=== PATIENT | male | born 1965 | race Asian ===

== ENCOUNTER 2018-05-14 20:28 | Emergency (ER) | payer SELFPAY ==
[2018-05-14] MEDS ORDERED: NS 0.9% 1000 ML* 1,000 ML IV ONE (21:05)
[2018-05-14] MEDS ORDERED: carBAMazepine TAB(*) 200 MG PO ONE (21:07)
[2018-05-14 21:22] LABS: ABS Basophils 0 10^3/ul (0-0.2); ABS Eosinophils 0.2 10^3/ul (0-0.6); ABS Lymphocytes 1.2 10^3/ul (1.0-4.8); ABS Monocytes 0.5 10^3/ul (0-0.8); ABS Neutrophils 6.3 10^3/ul (1.5-7.7); ABS Nucleated RBC 0 10^3/ul; Eosinophil % 2.1 % (0-6); Hematocrit 38 % (42-52); Hemoglobin 13.1 g/dl (14.0-18.0); Lymphocyte % 14.6 % (25-47); Mean Corpuscular HGB Conc 35 g/dl (31-36); Mean Corpuscular Hemoglobin 31 pg (27-31); Mean Corpuscular Volume 88 fL (80-94); Mean Platelet Volume 8.6 um3 (7.4-10.4); Nucleated Red Blood Cells % 0; Platelet Count 165 10^3/ul (150-450); Red Blood Count 4.29 10^6/ul (4.00-5.40); Red Cell Distribution Width 14 % (10.5-15); White Blood Count 8.2 10^3/ul (3.5-10.8)
[2018-05-14 21:28] LABS: INR 0.94 (0.77-1.02)
--- NOTE | 2018-05-14 21:30 | RAD ---
Indication: Possible seizure activity. Comparison: No prior exams available on the [facility] [facility] for comparison. Technique: Noncontrast CT vertex of skull through foramen magnum. Report: The sulci, ventricles, and basal cisterns are normal for age. Clark matter white matter differentiation is preserved without evidence for edema. No intra or extra axial hemorrhage, mass, or fluid collection detected. Unremarkable visualized orbital contents. No suspicious lesions at the calvarium or skull base. Suggestion of degenerative arthropathy at the RIGHT greater than LEFT temporomandibular joints. Unremarkable scalp. Partially visualized RIGHT maxillary sinus is remarkable for mucosal thickening. Clear mastoid air spaces. IMPRESSION: Negative unenhanced CT of the brain.
[2018-05-14 21:45] LABS: EGFR Non-African American 88.6 (>60)
--- NOTE | 2018-05-14 22:09 | ED ---
Angie Clark Rebecca, scribed for Melani Paez MD on 05/14/18 at 2108 . Neurological HPI - HPI Summary HPI Summary: Pt is a 52 y/o M BIBA who presents to ED s/p suspected seizure. Today, at approximately [address], he stopped walking and kept standing there per coworker who witnessed episode. He was unable to move for about 5 minutes and while leaning against a car, he slid down and experienced full body convulsions. Episode lasted a bit less than 2 minutes and resolved spontaneously, per witness. Notes frothing at the mouth and bitten tongue during the episode. Denies incontinence. After the episode, he was initially disoriented though at this time, he feels well. PMHx seizures in 2013 had 2 seizures in one night, after which he had a full workup including EEG, sleep- deprived EEG, brain CT. Results confirmed that he had a seizure and most recently had been taking Tegretol (150 mg 1x a day) which was discontinued about 8 months ago as he had not had any seizure activity since initial episode , per pt. Is on Mysoline for essential tremors which he has had his entire life. Follows up with a neurologist in [place]. - History of Current Complaint Chief Complaint: EDSeizure Stated Complaint: SEIZURE Time Seen by Provider: 05/14/18 20:47 Hx Obtained From: Patient, Family/Film Cutter - Coworker Onset/Duration: Sudden Onset, Resolved Current Severity: None Pain Intensity: 0 Pain Scale Used: 0-10 Numeric Episode Lasting: Seconds/Minutes - < 2 minutes Number of Episodes: 1 Aggravating: Nothing Alleviating: Spontanious Resolution Associated Signs and Symptoms: Positive: Confusion - Initially - resolved. Negative: Incontinent Bladder/Bowel Related Hx: Seizure - In 2013 - Allergy/Home Medications Allergies/Adverse Reactions: Allergies Allergy/AdvReac Type Severity Reaction Status Date / Time diclofenac Allergy Eyes Verified 05/14/18 21:09 Itchy/Swollen/Red/Watery ibuprofen Allergy Eyes Verified 05/14/18 21:09 Itchy/Swollen/Red/Watery Home Medications: Home Medications Mysoline TAB(*) 0.5 tab PO DAILY 05/14/18 [History Confirmed 05/14/18] PMH/Surg Hx/FS Hx/Imm Hx EENT History: Denies: Hx Deafness Neurological History: Reports: Hx Seizures, Other Neuro Impairments/Disorders - Hx Essential tremor Infectious Disease History: No Infectious Disease History: Reports: Traveled Outside the [place] in Last 30 Days - lives in [place] - Family History Known Family History: Positive: Seizure Disorder - Social History Occupation: Employed Full-time Alcohol Use: Occasionally Substance Use Type: Reports: None Smoking Status (MU): Never Smoked Tobacco Review of Systems Negative: Fever Positive: Other - Tongue bite, frothing at mouth Negative: incontinence Neurological: Other - S/p seizure, disoriented (resolved) All Other Systems Reviewed And Are Negative: Yes Physical Exam - Summary Physical Exam Summary: VITAL SIGNS: Reviewed. GENERAL: Patient is a well-developed and nourished male who is lying comfortable in the stretcher. Patient is not in any acute respiratory distress. HEAD AND FACE: No signs of trauma. No ecchymosis, hematomas or skull depressions. No sinus tenderness. EYES: PERRLA, EOMI x 2, No injected conjunctiva, no nystagmus. EARS: Hearing grossly intact. Ear canals and tympanic membranes are within normal limits. MOUTH: Tongue bite on the right side. NECK: Supple, trachea is midline, no adenopathy, no JVD, no carotid bruit, no c- spine tenderness, neck with full ROM. CHEST: Symmetric, no tenderness at palpation LUNGS: Clear to auscultation bilaterally. No wheezing or crackles. CVS: Regular rate and rhythm, S1 and S2 present, no murmurs or gallops appreciated. ABDOMEN: Soft, non-tender. No signs of distention. No rebound no guarding, and no masses palpated. Bowel sounds are normal. EXTREMITIES: FROM in all major joints, no edema, no cyanosis or clubbing. NEURO: Alert and oriented x 3. No acute neurological deficits. Speech is normal and follows commands. SKIN: Dry and warm Triage Information Reviewed: Yes Vital Signs On Initial Exam: Initial Vitals Temp Pulse Resp BP Pulse Ox 98.7 F 86 18 119/78 98 05/14/18 20:52 05/14/18 20:52 05/14/18 20:52 05/14/18 20:52 05/14/18 20:52 Vital Signs Reviewed: Yes - Parris Coma Scale Best Eye Response: 4 - Spontaneous Best Motor Response: 6 - Obeys Commands Best Verbal Response: 5 - Oriented Coma Scale Total: 15 Diagnostics - Vital Signs Vital Signs Temp Pulse Resp BP Pulse Ox 05/14/18 20:52 98.7 F 86 18 119/78 98 - Laboratory Result Diagrams: 05/14/18 21:11 05/14/18 21:12 Lab Statement: Any lab studies that have been ordered have been reviewed, and results considered in the medical decision making process. - CT Brain CT CT Interpretation: No Acute Changes - Negative unenhanced CT of the brain. ED physician reviewed this radiology report. CT Interpretation Completed By: Radiologist Re-Evaluation - Re-Evaluation First Eval Re-Evaluation Time: 21:55 Comment: Discussed results and D/C plan with the pt. Course/Dx - Course Assessment/Plan: Pt is a 52 y/o M BIBA who presents to ED s/p suspected seizure at approximately [address], lasting a bit less than 2 minutes and resolved spontaneously, per witness. Notes frothing at the mouth and bitten tongue during the episode. Denies incontinence. After the episode, he was initially disoriented though at this time, he feels well. PMHx seizures in 2013 had 2 seizures in one night, after which he had a full workup including EEG, sleep-deprived EEG, brain CT, most recently had been taking Tegretol (150 mg 1x a day) which was discontinued about 8 months ago as he had not had any seizure activity since initial episode, per pt. Is on Mysoline for essential tremors which he has had his entire life. Follows up with a neurologist in [facility]. Brain CT reveals no acute findings. Blood work was done. In the ED course, pt received Tegretol and fluids. Pt will be D/C to home with Dx of seizure with a follow up with neurology. Allergies noted. - Diagnoses Provider Diagnoses: Seizure Discharge - Sign-Out/Discharge Documenting (check all that apply): Discharge/Admit/Transfer - Discharge - Discharge Plan Condition: Stable Disposition: HOME Prescriptions: Carbamazepine [Tegretol] 200 mg PO BID #60 tablet Patient Education Materials: New-Onset Seizure in Adults (ED) Referrals: No Primary Care Phys,NOPCP [Primary Care Provider] - Mark Dye MD [Medical Doctor] - 2 Days Additional Instructions: RETURN TO ED FOR ANY NEW OR WORSENING SYMPTOMS. The documentation as recorded by the Angie cast Rebecca accurately reflects the service I personally performed and the decisions made by me, Melani Paez MD.
[2018-05-14 22:31] VITALS: BP 116/82
== END 2018-05-14 22:33 | disposition home or self-care (01) ==
LOC: ED 20:28
DX: R56.9 Unspecified convulsions (principal); R41.0 Disorientation, unspecified
CPT/HCPCS: 36415; 70450; 80053; 83735; 85025; 85610; 99283; A9270-GY